=== PATIENT | female | born 1975 | race Caucasian/White ===

== ENCOUNTER 2024-06-17 07:15 | Inpatient (IN) | payer OTHER ==
[~2024-06-17] VITALS: Ht 154.9 cm; Wt 95.3 kg
[2024-06-17 08:44] LABS: PH,URINE 6.5 (5.0-8.0); URINE APPEARANCE Clear; URINE BILIRRUBIN Negative (NEGATIVE); URINE BLOOD Negative; URINE COLOR Yellow; URINE GLUCOSE Negative (NEGATIVE); URINE KETONE Negative (NEGATIVE); URINE LEUKOCYTE Trace; URINE NITRATE Negative; URINE PROTEIN Negative (NEGATIVE); URINE UROBILINOGEN 0.2 E.U./dl
[2024-06-17 08:48] LABS: URINE BACTERIA 1053.2 uL (0.0-1933); URINE EPITHELIAL CELLS 80.3 uL (0.0-38.8); URINE RBC 8.2 uL (0.0-20.8); URINE WBC 25.1 uL (0.0-23.2)
[2024-06-17] MEDS ORDERED: RYBELSUS14 MG PO (08:51)
[2024-06-17] MEDS ORDERED: SYNTHROID150 MCG PO (08:51)
[2024-06-17] MEDS ORDERED: INFUVITE ADULT10 ML IV (08:52)
[2024-06-17 08:59] LABS: URINE CAST 0.15 uL (0.0-1.40)
[2024-06-17 09:11] LABS: HEMATOCRIT 37.3 % (36.0-45.00); HEMOGLOBIN 12.3 g/dL (12.0-15.00); MEAN CELL VOLUME 81.1 fL (80.00-100.00); MEAN CORPUSCULAR HEMOGLOBIN 26.7 pg (27.00-32.0); PLATELET COUNT 241 K/uL (150-450); RED CELL DISTRIBUTION WIDTH 14.6 % (11.5-14.5)
[2024-06-17 09:25] LABS: INR < 0.93; PARTIAL THROMBOPLASTIN TIME 28.2 SECONDS (22.0-34.0); PROTHROMBIN TIME 9.8 SECONDS (9.0-11.5)
[2024-06-17 10:02] LABS: ALBUMIN 3.8 gm/dL (3.4-5.0); BILIRUBIN TOTAL 0.55 mg/dL (0.3-1.2); CALCIUM 9.2 mg/dL (8.5-10.1); CREATININE SERUM 0.97 mg/dL (0.55-1.02); GFR 60.79; GLOBULINA 3.7 G/DL (2.4-3.5); POTASSIUM 4.62 mEq/L (3.5-5.1); TOTAL PROTEIN 7.5 gm/dL (6.4-8.2)
[2024-06-17 10:20] LABS: TSH 0.026 uIU/mL (0.358-3.74)
[2024-06-24] MEDS ORDERED: SYNTHROID175 MCG (13:23)
[2024-06-24] MEDS ORDERED: FOLIC ACID1 MG (13:23)
[2024-06-24] MEDS ORDERED: POVIDONE-IODINE 118 ML BOTT TOP ONE ×2 (14:08→14:50)
[2024-06-24] MEDS ORDERED: CEFOXITIN SODIUM 2,000 MG VIAL IV ONE (14:09)
[2024-06-24] MEDS ORDERED: SUGAMMADEX SODIUM 200 MG/2 ML VIAL IV ONE (16:23)
[2024-06-24] MEDS ORDERED: RINGERS SOLUTION,LACTATED 1,000 ML IV SCH (16:45)
[2024-06-24] MEDS ORDERED: SIMETHICONE 125 MG CAPSULE PO SCH (17:00)
[2024-06-24] MEDS ORDERED: PROMETHAZINE HCL 50 MG/ML AMPUL IV SCH (18:00)
[2024-06-24] MEDS ORDERED: MEPERIDINE HCL/PF 50 MG/ML VIAL IV SCH (18:00)
[2024-06-24 22:01] LABS: HEMATOCRIT 37.6 % (36.0-45.00); HEMOGLOBIN 12.5 g/dL (12.0-15.00); MEAN CELL VOLUME 81.4 fL (80.00-100.00); MEAN CORPUSCULAR HGB CONC 33.1 g/dl (32.0-36.0); PLATELET COUNT 234 K/uL (150-450); RED BLOOD COUNT 4.62 M/uL (4.00-6.00); RED CELL DISTRIBUTION WIDTH 14.1 % (11.5-14.5)
[2024-06-25] MEDS ORDERED: Tylenol #3 PO (09:06)
[2024-06-25] MEDS ORDERED: ACETAMINOPHEN WITH CODEINE 1 UDTAB TABLET PO ONE (09:40)
== END 2024-06-25 14:25 | disposition home or self-care (01) | DRG 743 ==
LOC: O/R 06-24 06:42 → SURG 06-24 07:15 → SURH 06-24 21:45
PROVIDERS: ADMIT Obstetrics & Gynecology; ATTEND Obstetrics & Gynecology
PROC: 0UT7FZZ Resection of Bilateral Fallopian Tubes, Via Natural or Artificial Opening With Percutaneous Endoscopic Assistance (ICD-10-PCS; 2024-06-24)
PROC: 0UT2FZZ Resection of Bilateral Ovaries, Via Natural or Artificial Opening With Percutaneous Endoscopic Assistance (ICD-10-PCS; 2024-06-24)
PROC: 0JQC0ZZ Repair Pelvic Region Subcutaneous Tissue and Fascia, Open Approach (ICD-10-PCS; 2024-06-24)
PROC: 0USG4ZZ Reposition Vagina, Percutaneous Endoscopic Approach (ICD-10-PCS; 2024-06-24)
PROC: 0TJB8ZZ Inspection of Bladder, Via Natural or Artificial Opening Endoscopic (ICD-10-PCS; 2024-06-24)
PROC: 0UT9FZZ Resection of Uterus, Via Natural or Artificial Opening With Percutaneous Endoscopic Assistance (ICD-10-PCS; principal; 2024-06-24 16:30)
DX: D25.0 Submucous leiomyoma of uterus (principal); D50.0 Iron deficiency anemia secondary to blood loss (chronic); N81.11 Cystocele, midline; N80.03 Adenomyosis of the uterus; N72 Inflammatory disease of cervix uteri; N92.0 Excessive and frequent menstruation with regular cycle; Z20.822 Contact with and (suspected) exposure to COVID-19